=== PATIENT | female | born 2000 | race African-American/Black ===

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

== ENCOUNTER 2019-05-31 18:35 | Emergency (ER) | payer SELFPAY ==
[~2019-05-31] VITALS: Ht 167.6 cm; Wt 74.0 kg
[~2019-05-31 18:35] MED LIST changes: +PREVACID30 M2 PO
[2019-05-31] MEDS ORDERED: IBUPROFEN600 MG PO (19:44)
[2019-05-31 19:50] VITALS: BP 119/74
== END 2019-05-31 19:50 | disposition home or self-care (01) | DRG 563 ==
LOC: ED 18:35
DX: S63.602A Unspecified sprain of left thumb, initial encounter (principal); W21.09XA Struck by other hit or thrown ball, initial encounter